=== PATIENT | male | born 1985 | race Caucasian/White ===

== ENCOUNTER → 2020-08-04 | Day surgery (SDC) | payer OTHER ==
--- NOTE | 2020-08-04 09:20 | OP ---
[facility] [address] [place] [address] OPERATIVE REPORT Name: MARVEL OLVERA Room: [facility]#: [id number] Admission: 08/04/20 Attend Phys: Ruby Kwon DO Discharge: Date of : 89 Report #: [id number] THIS REPORT FOR: cc: Damaris Taylor Stefany RNP ~ Ruby Kwon DO DATE OF SERVICE: 08/04/2020 PREOPERATIVE DIAGNOSIS: Umbilical hernia. FINDINGS: A 1.5 x 1.5 cm defect at the base of the umbilicus. POSTOPERATIVE DIAGNOSIS: Umbilical hernia. SURGEON: Ruby Kwon DO COSURGEON: Igor Pillai DO, PGY-1 RIVER DRIVER: YULIANA Mei. PROCEDURE PERFORMED: Umbilical hernia repair with mesh. ANESTHESIA: LMA and local. ESTIMATED BLOOD LOSS: 3 mL. DRAINS: None. SPECIMENS: None. CONDITION: Stable. DISPOSITION: PACU to home. COMPLICATIONS: None. HISTORY OF PRESENT ILLNESS: The patient is a pleasant 35-year-old male who presented to my office with complaint of an enlarging bulge at his umbilicus. On physical exam, he had an obvious umbilical hernia, which was reducible with some tenderness. He was then consented for repair of this area with possible mesh. Risks discussed included bleeding, infection, pain, scar formation, recurrence, mesh complications, and risks of anesthesia. The patient understood these risks and elected to proceed. DESCRIPTION OF PROCEDURE: The patient was brought to the operating room. He [facility] [address] [place] [address] OPERATIVE REPORT Name: WADEMARVEL D Room: [facility].#: [id number] Admission: 08/04/20 Attend Phys: Ruby Kwon DO Discharge: Date of : 89 Report #: [id number] was laid supine on the operating room table. SCDs were placed on bilateral lower extremities. Ancef was given in the perioperative period. LMA anesthesia was induced by Anesthesia without difficulty. Abdomen was prepped and draped in standard sterile fashion. Timeout was performed to verify patient and procedure. A 10 mL of 0.5% Marcaine were injected in the supraumbilical area. Incision was made with #15 blade. Cautery was used for hemostasis. Then, using a combination of blunt and cautery dissection, we dissected down until the fascia was visualized. The hernia sac was then easily visible protruding up to the base of the umbilicus. Hernia sac was gently dissected free from the umbilicus and the umbilicus was then gently retracted using an [employer]. Any further adhesions holding the hernia sac above the hernia defect were removed and the hernia was then able to be completely reduced into the abdomen. Hernia defect measured approximately 1.5 x 1.5 cm. Finger was gently introduced into the abdomen to assure that there were no jazz-incisional adhesions or further hernia defects, none were identified. A small Ventralex aniak mesh was brought onto the field and was easily deployed into the defect. Care was taken to make sure that the mesh was fully deployed and that no intra-abdominal contents were caught between the mesh and the anterior abdominal wall. Mesh was then sutured into place on the right and left sides of the mesh using an inverted 0 Prolene stitch. The defect was then closed over the mesh using 2 interrupted inverted stitches of 0 Prolene with excellent closure of the defect. An additional 10 mL of 0.5% Marcaine were injected at the defect. Umbilical stump was reapproximated to the underlying fascia using 2 interrupted stitches of 2-0 Vicryl. Wound was then closed in a layered fashion using deep and superficial stitches of 3-0 Vicryl in an inverted interrupted fashion. Skin wound was closed with a running 4-0 Monocryl. A total of 30 mL of 0.5% Marcaine were used to anesthetize the wound. Wound was then cleansed and covered with Dermabond. The patient was allowed to awaken from anesthesia, was extubated and transported to the recovery room with no further difficulties. Counts were correct x 2 at the conclusion of the case. <ELECTRONICALLY SIGNED> By: Ruby Kwon DO 08/04/20 0920 [id number] Kwon DO /nt
== END | disposition home or self-care (01) ==
LOC: M.SUR 06:08
PROVIDERS: ATTEND Surgery
DX: K42.9 Umbilical hernia without obstruction or gangrene (principal); Z98.890 Other specified postprocedural states; Z79.899 Other long term (current) drug therapy; Z20.822 Contact with and (suspected) exposure to COVID-19; Z88.8 Allergy status to other drugs, medicaments and biological substances